=== PATIENT | female | born 1945 | race Caucasian/White ===

== ENCOUNTER 2016-10-18 10:58 | Emergency (ER) | payer MEDICARE, MEDICAID ==
[~2016-10-18] VITALS: Ht 147.3 cm; Wt 93.2 kg
[~2016-10-18 10:58] MED LIST: ALBU8.5H2 INHALATION; BECL8.7A5 IH; CHOL200025 PO; DIPH-575 PO; MULT1CAP33 PO; NITR0.4T SL; OMEP40CA36 PO; PARO20TA5 PO; ROSU40TA PO; SOTA80TA PO; TRIA1CAP5 PO; WARF2TAB7 PO
[2016-10-18 11:05] VITALS: BP 146/83; PULSE 74; RESP 25; O2SAT 98
--- NOTE | 2016-10-18 11:22 | ED.REPORT ---
HPI-Dyspnea / Wheezing Date of Service Oct 18, 2016 ED Provider: Nursing Notes Stated Complaint: COUGH/CHEST PAIN WITH BURNING FEELING Chief Complaint: Respiratory Complaints Allergies: Coded Allergies: atorvastatin (Verified Allergy, Mild, 09/30/15) fluoxetine (Verified Allergy, Mild, 09/30/15) venlafaxine (Verified Allergy, Mild, 09/30/15) sertraline (Verified Allergy, Unknown, 09/30/15) lisinopril (Verified Adverse Reaction, Intermediate, cough, 09/30/15) Scheduled Beclomethasone Dipropionate (Qvar) 8.7 Gm Aer.w.adap 1 PUFFS IH BID Cholecalciferol (Vitamin D3) (Vitamin D3) 2,000 Unit Tablet 2,000 UNIT PO DAILY Diphenhydra/Phenyleph/Acetamin (Allergy Plus-Sinus Guajardo Caplet) 1 Each Tablet 1 EACH PO DAILY Multivitamin (Multivitamins) 1 Each Capsule 1 EACH PO DAILY Paroxetine (Paroxetine) 20 Mg Tablet 20 MG PO HS Rosuvastatin Calcium (Crestor) 40 Mg Tablet 40 MG PO DAILY Sotalol HCl (Sotalol) 80 Mg Tablet 120 MG PO BID Triamterene/HCTZ 37.5-25 mg (Triamterene/HCTZ 37.5-25 mg) 1 Each Capsule 1 EACH PO DAILY Warfarin Sodium (Warfarin Sodium) 2 Mg Tablet 2 MG PO DAILY Scheduled PRN Albuterol HFA (Proair HFA) 8.5 Gm Hfa.aer.ad 2 PUFFS INHALATION Q4H PRN PRN For Shortness of Breath Nitroglycerin SL (Nitrostat) 0.4 Mg Tab.subl 0.4 MG SL Q5MIN PRN PRN For Chest Pain Omeprazole (Omeprazole) 40 Mg Capsule.dr 40 MG PO DAILY PRN PRN For Dyspepsia or Heartburn General Time Seen by MD: 11:21 Past Medical History Past Medical History Notes: on coumadin Past Medical History CAD, MA, has a heart murmur Reports: Asthma, Coronary artery disease, Hypertension Past Surgical History carpal tunnel surgery, heart, back Reports: Angioplasty, Cholecystectomy, Hysterectomy Family History n/a Smoking History Former Smoker Social History Alcohol Use: "Social" Drug Use: Denies drug use Occupation , lives with sister and her Physical Exam Initial Vital Signs Vital Signs (First) Date Time Temp Pulse Resp B/P Pulse Ox O2 Delivery O2 Flow Rate FiO2 10/18/16 11:05 36.9 74 25 146/83 98 Room Air Discharge & Departure Referrals: Anthony Matias MD (PCP) Roosevelt Head MD Oct 18, 2016 11:22
--- NOTE | 2016-10-18 11:22 | ED.REPORT ---
HPI-URI / Cough / Cold Date of Service Oct 18, 2016 ED Provider: Shweta Duong History of Present Illness: coughing for 3 to 4 days. having burning chest pain after coughing also has an awful taste in mouth with the burning sensation. sam is primary care. was taking cough syrup. Nursing Notes Stated Complaint: COUGH/CHEST PAIN WITH BURNING FEELING Chief Complaint: Respiratory Complaints Nursing Notes Reviewed: Yes Allergies: Coded Allergies: atorvastatin (Verified Allergy, Mild, 09/30/15) fluoxetine (Verified Allergy, Mild, 09/30/15) venlafaxine (Verified Allergy, Mild, 09/30/15) sertraline (Verified Allergy, Unknown, 09/30/15) lisinopril (Verified Adverse Reaction, Intermediate, cough, 09/30/15) Scheduled Beclomethasone Dipropionate (Qvar) 8.7 Gm Aer.w.adap 1 PUFFS IH BID Cholecalciferol (Vitamin D3) (Vitamin D3) 2,000 Unit Tablet 2,000 UNIT PO DAILY Diphenhydra/Phenyleph/Acetamin (Allergy Plus-Sinus Guajardo Caplet) 1 Each Tablet 1 EACH PO DAILY Multivitamin (Multivitamins) 1 Each Capsule 1 EACH PO DAILY Paroxetine (Paroxetine) 20 Mg Tablet 20 MG PO HS Rosuvastatin Calcium (Crestor) 40 Mg Tablet 40 MG PO DAILY Sotalol HCl (Sotalol) 80 Mg Tablet 120 MG PO BID Triamterene/HCTZ 37.5-25 mg (Triamterene/HCTZ 37.5-25 mg) 1 Each Capsule 1 EACH PO DAILY Warfarin Sodium (Warfarin Sodium) 2 Mg Tablet 2 MG PO DAILY Scheduled PRN Albuterol HFA (Proair HFA) 8.5 Gm Hfa.aer.ad 2 PUFFS INHALATION Q4H PRN PRN For Shortness of Breath Nitroglycerin SL (Nitrostat) 0.4 Mg Tab.subl 0.4 MG SL Q5MIN PRN PRN For Chest Pain Omeprazole (Omeprazole) 40 Mg Capsule.dr 40 MG PO DAILY PRN PRN For Dyspepsia or Heartburn General Time Seen by MD: 11:21 Chief Complaint Cough, productive... (sometimes is productive) Hx Obtained From: Patient Onset Occurred: 4 days ago Past Medical History Past Medical History Notes: on coumadin for valve replacement 2015 at [facility] Past Medical History CAD, ID, has a heart murmur Reports: Asthma, Coronary artery disease, Hypertension Past Surgical History carpal tunnel surgery, heart, back Reports: Angioplasty, Cholecystectomy, Hysterectomy Family History n/a Smoking History Former Smoker Social History Alcohol Use: "Social" Drug Use: Denies drug use Occupation , lives with sister and her , has been living with them for 10 years 10/18/2016 Ambulatory Status Independent Review of Systems Basic Review of Systems : No dysuria, No frequency Hematologic: No bleeding, No bruising Psychiatric: Normal thought content Physical Exam Initial Vital Signs Vital Signs (First) Date Time Temp Pulse Resp B/P Pulse Ox O2 Delivery O2 Flow Rate FiO2 10/18/16 11:05 36.9 74 25 146/83 98 Room Air Initial VS: Reviewed, Vital signs normal Head / Eyes: Atraumatic, Normocephalic, PERRL Neck: Supple, Non-tender, Full range of motion Cardiovascular: Regular rate & rhythm, Heart sounds normal, Intact distal pulses Abdomen / GI: Soft, Non-tender, No guarding, No rebound, No distention Back: No CVA tenderness Lymphatic: No lymphadenopathy Extremities: Vascular intact, Neuro intact, No swelling, No tenderness Skin: Warm, Dry, No cyanosis Neurologic: Alert, Oriented, Nonfocal Psychiatric: Mood/affect normal, Behavior normal, Normal thought content General/Constitutional: Awake, Alert, No acute distress, Well appearing, Well developed, Well hydrated Respiratory / Chest: Atraumatic, Breath sounds NL, Breath sounds = bilat, No respiratory distress Head / Eyes: Atraumatic, Normocephalic, PERRL, EOMI Cardiovascular: Heart rate NL, Regular rhythm, Heart sounds NL, No gallop Interpretation & Diagnostics Lab Results Interpretation Result Diagram: 10/18/16 1130 10/18/16 1130 Test 10/18/16 11:30 White Blood Count 6.8th/mm3 (3.8-10.1) Red Blood Count 5.10mil/mm3 (3.90-5.20) Hemoglobin 15.0g/dL (12.0-15.6) Hematocrit 45.6% (35.0-46.0) Mean Corpuscular Volume 89.4fL (81-100) Mean Corpuscular Hemoglobin 29.4pg (27.0-35.0) Mean Corpuscular Hemoglobin Concent 32.9% (32.0-37.0) Red Cell Distribution Width 13.9% (12.3-15.4) Platelet Count 225bil/L (150-400) Neutrophils (%) (Auto) 52.7% (40-74) Lymphocytes (%) (Auto) 32.4% (14-46) Monocytes (%) (Auto) 13.2% (4-12) Eosinophils (%) (Auto) 1.3% (0-5) Basophils (%) (Auto) 0.3% (0-3) Sodium Level 137mEq/L (134-144) Potassium Level 3.8mEq/L (3.5-5.2) Chloride Level 98mEq/L (97-108) Carbon Dioxide Level 23mmol/L (18-29) Blood Urea Nitrogen 14mg/dL (8-27) Creatinine 0.94mg/dL (0.57-1.00) Estimat Glomerular Filtration Rate 84mL/min (>59) Glucose Level 111mg/dL (60-99) Lactic Acid Level 0.9mmol/L (0.4-2.0) Calcium Level 9.4mg/dL (8.5-10.1) Total Bilirubin 0.7mg/dL (0.0-1.2) Aspartate Amino Transf (AST/SGOT) 30U/L (0-50) Alanine Aminotransferase (ALT/SGPT) 17U/L (0-32) Alkaline Phosphatase 90U/L (25-165) Troponin T 0.010ug/L (0.0-0.011) Pro-B-Type Natriuretic Peptide 211.8pg/mL (0-301) Total Protein 7.5g/dL (6.4-8.4) Albumin 4.2g/dL (3.4-5.0) X-Ray Chest Interpretation Chest Xray Interpretation: NDICATIONS: cough TECHNIQUE: 2 views of the chest were acquired. COMPARISON: 02/05/2016 FINDINGS: Surgical changes and devices: Median sternotomy and valve replacement Lungs and pleura: No pleural effusions or pneumothorax. Lungs are clear. Mediastinum: Mediastinal contours are normal. Heart size is normal. Tortuous aorta. Bones and chest wall: No suspicious bony abnormalities. Soft tissues appear unremarkable. IMPRESSION: No acute cardiopulmonary abnormality. Re-Eval/Medical Decision Med Decision/Clinical Course Med Decision/Clinical Course: 71 year old female presents for cough which has been ongoing for 3 to 4 days. denies fever. [place] better this am on waking but then had a coughing fit. DEnies coughing to the point of vomiting. Patient reporting feeling better after duoneb treatment. X-ray is negative for any sign of infection. Exam is not consistent with asthama or pertusis. Patient provided rx for z-jon, nebulizer and medication for nebulizer and tessalon perles and delsym , Phone call from irma reveles and one of her medications has potential interaction of QT prolongation, antibiotic changed to doxycycline 100mg bid times 10 days. REturn to ER precautions provided. Discharge & Departure Impression: Primary Impression: Cough Disposition: Home Patient Instructions: Upper Respiratory Infection (ED) Additional Instructions: Your labs are looking good. The chest x-ray does not show any sign of infection but you are being started on antibiotics. Start azithromycin daily for 5 days. You are also being provided a prescription for a nebulizer. This can be filled at [facility] or [facility]. You are also being provided a prescription for duoneb soln, use every 4 hours while awake. Also tessalon perles to help decrease the cough. Also delsym is helpful. Please follow with primary care on Tuesday or for a recheck. Return to the ER is fever or you are feeling worse. Referrals: Anthony Matias MD (PCP) EDSupervising Provider for APC: Roosevelt Head MD copies to: Anthony Matias MD, Sue ARNP Oct 18, 2016 11:22
[2016-10-18 11:39] LABS: BASOPHILS % (AUTO) 0.3 % (0-3); EOSINOPHILS % (AUTO) 1.3 % (0-5); MONOCYTES % (AUTO) 13.2 % (4-12); Mean Corpuscular Hemoglobin 29.4 pg (27.0-35.0); Mean Corpuscular Volume 89.4 fL (81-100); NEUTROPHILS % (AUTO) 52.7 % (40-74); Platelet Count 225 bil/L (150-400)
[2016-10-18 12:05] LABS: TROPONIN T 0.01 ug/L (0.0-0.011)
--- NOTE | 2016-10-18 12:17 | DRSVH ---
PROCEDURE: X-RAY CHEST, TWO VIEWS ([id number]) INDICATIONS: cough TECHNIQUE: 2 views of the chest were acquired. COMPARISON: 02/05/2016 FINDINGS: Surgical changes and devices: Median sternotomy and valve replacement Lungs and pleura: No pleural effusions or pneumothorax. Lungs are clear. Mediastinum: Mediastinal contours are normal. Heart size is normal. Tortuous aorta. Bones and chest wall: No suspicious bony abnormalities. Soft tissues appear unremarkable. IMPRESSION: No acute cardiopulmonary abnormality. Dictated by: Sagar Bradley M.D. on 10/18/2016 at 12:14 Approved by: Sagar Bradley M.D. on 10/18/2016 at 12:16
[2016-10-18] MEDS ORDERED: Albuterol-Ipratropium 3 mL Inhalation Solution NEB ONE (12:30)
[2016-10-18 12:51] VITALS: PULSE 74; RESP 18; O2SAT 94
[2016-10-18 13:37] VITALS: BP 143/81; PULSE 73; RESP 19; O2SAT 95
== END 2016-10-18 14:00 | disposition home or self-care (01) ==
LOC: SED 10:58
DX: R05 Cough (principal); I25.2 Old myocardial infarction; I10 Essential (primary) hypertension; I25.10 Atherosclerotic heart disease of native coronary artery without angina pectoris; Z87.891 Personal history of nicotine dependence; Z79.01 Long term (current) use of anticoagulants; Z88.8 Allergy status to other drugs, medicaments and biological substances
CPT/HCPCS: 36415; 71020; 80053; 83605; 83880; 84484; 85025; 93005; 94664; 99285; J7620